=== PATIENT | female | born 1950 | race Caucasian/White ===

== ENCOUNTER 2017-02-19 19:15 | Inpatient (IN) | payer BC, OTHER ==
[~2017-02-19 19:15] MED LIST: DIPRIVAN VIAL ONE; EPHEDRINE SULFATE INJ ONE; NEOSTIGMINE INJ ONE; NORCURON INJ 10 MG VIAL ONE; QUELICIN (OR ANECTINE) ONE; ROBINUL ONE; SUPRANE IN ONE; VERSED ONE; XYLOCAINE 2 % (PLAIN) ONE; ZOFRAN INJ 4 MG VIAL ONE
--- NOTE | 2017-02-19 20:15 | DR.GENAD ---
HPI - PCP Primary Care Physician: Dion FLORES - Complaint/Symptoms Chief Complaint:: UPPER RIGHT ABDOMINAL PAIN COMES AND GOES SINCE SUNDAY. RIGHT UPPER QUADRANT IS TIGHT ALL THE TIME. PATIENT HAS ALSO BEEN VOMITING Self Treatment fo Chief Complaint: TOOK A ZOFRAN TAB ABOUT AN HOUR AGO - Source History Provided: Patient - Mode of Arrival Mode of Arrival: Ambulatory - Timing Onset of Chief Complaint: 02/15/17 PMH - PMH Past Medical History: Yes Past Medical History: Diabetes, Dyslipidemia, GERD, Hypertension, Kidney Stones Past Surgical History: Yes Surgical History: Hysterectomy Past Surgical History Comment: LUMPS REMOVED FROM BREAST - Family History History of Family Medical Conditions: Yes Family Medical History: Diabetes Mellitus, Cancer, [place], Coronary Artery Disease, Sudden Cardiac , Hypertension - Social History Does patient currently use any type of tobacco product: No Have you used tobacco products in the last 12 months: No Type of Tobacco Use: None Does any household member use tobacco: No Alcohol Use: None Do you use any recreational Drugs:: No Lives With: Spouse Lives Where: Home - infectious screening In the last 2 months have you had wt loss of >10#?: NO Have you had fever, night sweats or hemotysis?: No Have you traveled outside the country in the last 6 months?: No Isolation: Standard ROS - Review of Systems Eyes: No Symptoms Reported ENTM: No Symptoms Reported Respiratoy: No Symptoms Reported Cardiovascular: No Symptoms Reported Gastrointestinal/Abdominal: Abdominal Pain (RUQ) Neurological: No Symptoms Reported Musculoskeletal: No Symptoms Reported Integumentary: No Symptoms Reported Hematologic/Lymphatic: No Symptoms Reported Endocrine: No Symptoms Reported Psychiatric: No Symptoms Reported All Other Systems: Reviewed and Negative PE - Vital Signs Vitals: Temperature 97.9 F Pulse Rate 66 Respiratory Rate 20 Blood Pressure 172/72 O2 Sat by Pulse Oximetry 96 - General Limitations: No Limitations General Appearance: Alert, In No Apparent Distress - Head Head Exam: Normal Inspection, Atraumatic - Eyes Eye exam: Normal Appearance, PERRL, EOMI - ENT ENT Exam: Normal Exam External Ear Exam: Normal External Inspection TM/Canal Exam: Bilateral Normal Nose Exam: Normal Nose Exam Mouth Exam: Normal Inspection Throat Exam: Normal Inspection - Neck Neck Exam: Normal Inspection - Chest Chest Inspection: Normal Inspection - Respiratory Respiratory Exam: Normal Lung Sounds Bilat Respiratory Exam: Bilateral Clear to Auscultation - Cardiovascular Cardiovascular Exam: Regular Rate, Normal Rhythm - Abdominal Exam Abdominal Exam: Normal Inspection, Normal Bowel Sounds Abdominal Tenderness: negative: RUQ, RLQ, LUQ, LLQ, Epigastrium, Suprapubic, Diffuse, Mild, Moderate, Severe, Other - Extremities Extremities Exam: Normal Inspection, Full ROM - Back Back Exam: Normal Inspection, Full ROM - Neurologic Neurological Exam: Alert, Oriented X3, CN II-XII Intact - Psychiatric Psychiatric Exam: Normal Affect - Skin Skin Exam: Warm, Dry, Intact Course - Reevaluation 1st: Improved - Consultation Called: 10:15 (Dr Humphreys recommended admission for further evaluation) ROR - Labs Reviewed Result Diagrams: 02/19/17 20:44 02/19/17 20:44 Laboratory: WBC 12.3 X10^3/uL (3.6-10.0) H 02/19/17 20:44 RBC 4.63 X10^6/uL (3.5-5.4) 02/19/17 20:44 Hgb 13.7 g/dL (12.0-16.0) 02/19/17 20:44 Hct 39.3 % (36.0-47.0) 02/19/17 20:44 MCV 85.0 fL (80.0-100.0) 02/19/17 20:44 MCH 29.7 pg (27.0-34.0) 02/19/17 20:44 MCHC 34.9 g/dL (33.0-35.0) 02/19/17 20:44 RDW 13.2 % (11.6-16.5) 02/19/17 20:44 Plt Count 208 X10^3/uL (150.0-450.0) 02/19/17 20:44 MPV 7.4 fL (7.4-11.0) 02/19/17 20:44 Neut % 88.3 % (42.0-75.0) H 02/19/17 20:44 Lymph % 6.3 % (21.0-51.0) L 02/19/17 20:44 [place] % 4.2 % (0.0-13.0) 02/19/17 20:44 Eos % 0.6 % (0.9-2.9) L 02/19/17 20:44 Baso % 0.6 % (0.2-1.0) 02/19/17 20:44 Neut # 10.9 x10^3/uL (2.2-4.8) H 02/19/17 20:44 Lymph # 0.8 X10^3/uL (1.3-2.9) L 02/19/17 20:44 [place] # 0.5 x10^3/uL (0.3-0.8) 02/19/17 20:44 Eos # 0.1 x10^3/uL (0.0-0.2) 02/19/17 20:44 Baso # 0.1 X10^3/uL (0.0-0.1) 02/19/17 20:44 Absolute Nucleated RBC 0.0 /100WBC 02/19/17 20:44 Sodium 138 mmol/L (136-145) 02/19/17 20:44 Corrected Sodium 139 mmol/L (136-145) 02/19/17 20:44 Potassium 4.0 mmol/L (3.5-5.1) 02/19/17 20:44 Chloride 99 mmol/L (98-107) 02/19/17 20:44 Carbon Dioxide 26.6 mmol/L (21-32) 02/19/17 20:44 BUN 14 mg/dL (7-18) 02/19/17 20:44 Creatinine 0.83 mg/dL (0.55-1.02) 02/19/17 20:44 Est GFR (MDRD) Af Amer > 60 (>60) 02/19/17 20:44 Est GFR (MDRD) Non-Af > 60 (>60) 02/19/17 20:44 Glucose 158 mg/dL (65-99) H 02/19/17 20:44 Calcium 9.6 mg/dL (8.5-10.1) 02/19/17 20:44 Corrected Calcium TNP 02/19/17 20:44 Total Bilirubin 2.70 mg/dL (0.2-1.0) H 02/19/17 20:44 AST 165 Units/L (15-37) H 02/19/17 20:44 ALT 169 Units/L (12-78) H 02/19/17 20:44 Alkaline Phosphatase 132 Units/L (46-116) H 02/19/17 20:44 C-Reactive Protein 28.50 mg/L (0-3.0) H 02/19/17 20:44 Total Protein 7.8 g/dL (6.4-8.2) 02/19/17 20:44 Albumin 4.0 g/dL (3.4-5.0) 02/19/17 20:44 Globulin 3.8 g/dL (2.5-4.5) 02/19/17 20:44 Albumin/Globulin Ratio 1.1 Ratio (1.1-2.1) 02/19/17 20:44 Amylase 294 Units/L (25-115) H 02/19/17 20:44 Lipase 3545 Units/L (73-393) H 02/19/17 20:44 Specimen Type Clean catch urine 02/19/17 21:49 Urine Color Yellow (YELLOW) 02/19/17 21:49 Urine Appearance Slightly hazy (CLEAR) 02/19/17 21:49 Urine pH 6.0 (5.0 - 8.0) 02/19/17 21:49 Ur Specific Hana 1.020 (1.000-1.030) 02/19/17 21:49 Urine Protein Negative (NEGATIVE) 02/19/17 21:49 Urine Glucose (UA) Negative (NEGATIVE) 02/19/17 21:49 Urine Ketones Negative (NEGATIVE) 02/19/17 21:49 Urine Occult Blood 2+ (NEGATIVE) 02/19/17 21:49 Urine Nitrite Negative (NEGATIVE) 02/19/17 21:49 Urine Bilirubin Negative (NEGATIVE) 02/19/17 21:49 Urine Urobilinogen 3+ (NORMAL) 02/19/17 21:49 Ur Leukocyte Esterase 2+ (NEGATIVE) 02/19/17 21:49 Urine RBC 0-3 /HPF (NEGATIVE) 02/19/17 21:49 Urine WBC 6-8 /HPF (NEGATIVE) 02/19/17 21:49 Ur Squamous Epith Cells Rare /HPF (NEGATIVE) 02/19/17 21:49 Urine Bacteria 1+ /HPF (NEGATIVE) 02/19/17 21:49 Ur Culture Indicated? Yes/culture set up 02/19/17 21:49 - XRAY XRAY Interpreted by: Radiologist (US: The gallbladder demonstrated diffuse gallbladder wall thickening measuring approximately 7mm in thickness. No pericholecystic fluie or gallbladder wall submucosal edema identified. There is approximate 10 mm increased echogenicity within the gallbladder wall which does not appear to be dependent suspicious for gallbladder nodule or poly. There are at least 2 stones noted within the gallbladder neck which moved during the examination. Common bile duct measures 6mm. Visualized right kidney demonstrates no evidence of hydronephrosis. Limited evaluation the liver demonstrates no discrete focal hepatic lesion.) - Diagnosis Discharge Problem: Pancreatitis due to biliary obstruction Qualifiers: Chronicity: acute Acute pancreatitis complication: uninfected necrosis Qualified Code(s): K85.11 - Biliary acute pancreatitis with uninfected necrosis - Discharge Plan Condition: Stable - Follow ups/Referrals Follow ups/Referrals: MARÍA FLORES [Primary Care Provider] - 3 days - Instructions
[2017-02-19] MEDS ORDERED: NS 1000 ML 1,000 ML IV ONE (20:17)
[2017-02-19] MEDS ORDERED: ZOFRAN INJ 4 MG VIAL IVP ONE (20:17)
[2017-02-19 20:49] LABS: BASOPHILS # (AUTO) 0.1 X10^3/uL (0.0-0.1); BASOPHILS % (AUTO) 0.6 % (0.2-1.0); EOSINOPHILS # (AUTO) 0.1 x10^3/uL (0.0-0.2); EOSINOPHILS % (AUTO) 0.6 % (0.9-2.9); HEMATOCRIT 39.3 % (36.0-47.0); HEMOGLOBIN 13.7 g/dL (12.0-16.0); LYMPHOCYTES # (AUTO) 0.8 X10^3/uL (1.3-2.9); LYMPHOCYTES % (AUTO) 6.3 % (21.0-51.0); MEAN CORPUSCULAR HEMOGLOBIN 29.7 pg (27.0-34.0); MEAN CORPUSCULAR HGB CONC 34.9 g/dL (33.0-35.0); MEAN PLATELET VOLUME 7.4 fL (7.4-11.0); MONOCYTES # (AUTO) 0.5 x10^3/uL (0.3-0.8); MONOCYTES % (AUTO) 4.2 % (0.0-13.0); NEUTROPHILS # (AUTO) 10.9 x10^3/uL (2.2-4.8); NEUTROPHILS % (AUTO) 88.3 % (42.0-75.0); PLATELET COUNT 208 X10^3/uL (150.0-450.0); RED BLOOD COUNT 4.63 X10^6/uL (3.5-5.4); RED CELL DISTRIBUTION WIDTH 13.2 % (11.6-16.5); WHITE BLOOD COUNT 12.3 X10^3/uL (3.6-10.0)
[2017-02-19 21:01] LABS: AMYLASE 294 Units/L (25-115)
[2017-02-19 21:10] LABS: LIPASE 3545 Units/L (73-393)
[2017-02-19 21:11] LABS: ALANINE AMINOTRANSFERASE 169 Units/L (12-78); ALKALINE PHOSPHATASE 132 Units/L (46-116); ASPARTATE AMINO TRANSFERASE 165 Units/L (15-37); BLOOD UREA NITROGEN 14 mg/dL (7-18); CALCIUM 9.6 mg/dL (8.5-10.1); CARBON DIOXIDE 26.6 mmol/L (21-32); CHLORIDE 99 mmol/L (98-107); COR NA(FOR HYPERGLY) 139 mmol/L (136-145); CREATININE 0.83 mg/dL (0.55-1.02); SODIUM 138 mmol/L (136-145); TOTAL PROTEIN 7.8 g/dL (6.4-8.2); eGFR BLACK RACES > 60 (>60); eGFR NON BLACK RACES > 60 (>60)
--- NOTE | 2017-02-19 21:48 | US ---
Gallbladder sonogram Indication: Right upper quadrant pain with vomiting. Technique: Real-time grayscale or Doppler imaging of the right upper quadrant was performed. Findings: The gallbladder demonstrates diffuse gallbladder wall thickening measuring approximately 7 mm in thickness. No pericholecystic fluid or gallbladder wall submucosal edema identified. There is a pproximate 10 mm increased echogenicity within the gallbladder wall which does not appear to be depen dent suspicious for gallbladder nodule or polyp. There are at least 2 stones noted within the gallbla dder neck which moved during the examination. Common bile duct measures 6 mm. Visualized right kidney demonstrates no evidence of hydronephrosis. Limited evaluation the liver demonstrates no discrete fo porsche hepatic lesion. Impression: Abnormal appearance of the gallbladder with diffuse gallbladder wall thickening and quest ionable area of focal nondependent gallbladder wall thickening/echogenicity which is suspicious for e ither focal gallbladder wall thickening in the setting of cholesterolosis or gallbladder polyp. Sever al dependent gallstones are noted within the gallbladder neck which are mobile during the examination . No sonographic evidence of acute cholecystitis. Given the gallbladder wall thickening and question nodule/polyp consider follow-up gallbladder sonogram in 6 months to exclude gallbladder polyp/mass ca n be obtained as clinically warranted. Reported By:
[2017-02-19 22:04] LABS: BILIRUBIN,URINE NEGATIVE (NEGATIVE); BLOOD/HEMOGLOBIN,URINE 2+ (NEGATIVE); GLUCOSE, URINE NEGATIVE (NEGATIVE); KETONES,URINE NEGATIVE (NEGATIVE); LEUKOCYTE ESTERASE ,URINE 2+ (NEGATIVE); NITRITES,URINE NEGATIVE (NEGATIVE); PROTEIN,URINE NEGATIVE (NEGATIVE); UROBILINOGEN,URINE 3+ (NORMAL)
[2017-02-19 22:12] LABS: APPEARANCE,URINE SLIGHTLY HAZY (CLEAR); BACTERIA,URINE 1+ /HPF (NEGATIVE); COLOR,URINE YELLOW (YELLOW); RBC,URINE 0-3 /HPF (NEGATIVE); SQUAMOUS EPITHELIAL CELL,UR RARE /HPF (NEGATIVE)
[2017-02-19] MEDS ORDERED: DEMEROL INJ IM PRN (22:32)
[2017-02-19] MEDS ORDERED: ZOFRAN INJ 4 MG VIAL IVP PRN (22:33)
[2017-02-19] MEDS ORDERED: MORPHINE SULFATE INJ 4 MG IVP ONE (22:37)
[2017-02-19] MEDS ORDERED: MORPHINE SULFATE INJ 4 MG ONE (22:39)
[2017-02-19] MEDS: NS 1000 ML 1,000 ML IV SCH (23:30)
[2017-02-19 23:40] VITALS: BMI 29.0
[2017-02-20 05:29] LABS: BASOPHILS % (AUTO) 0.2 % (0.2-1.0); HEMATOCRIT 35.5 % (36.0-47.0); HEMOGLOBIN 12.3 g/dL (12.0-16.0); LYMPHOCYTES # (AUTO) 0.3 X10^3/uL (1.3-2.9); LYMPHOCYTES % (AUTO) 2.9 % (21.0-51.0); MEAN CORPUSCULAR HEMOGLOBIN 29.7 pg (27.0-34.0); MEAN CORPUSCULAR HGB CONC 34.6 g/dL (33.0-35.0); MEAN CORPUSCULAR VOLUME 85.8 fL (80.0-100.0); MEAN PLATELET VOLUME 8.4 fL (7.4-11.0); MONOCYTES # (AUTO) 0.6 x10^3/uL (0.3-0.8); MONOCYTES % (AUTO) 5.1 % (0.0-13.0); NEUTROPHILS # (AUTO) 11.1 x10^3/uL (2.2-4.8); NEUTROPHILS % (AUTO) 91.8 % (42.0-75.0); PLATELET COUNT 170 X10^3/uL (150.0-450.0); RED BLOOD COUNT 4.13 X10^6/uL (3.5-5.4); RED CELL DISTRIBUTION WIDTH 13.2 % (11.6-16.5); WHITE BLOOD COUNT 12.1 X10^3/uL (3.6-10.0)
[2017-02-20 05:32] LABS: ALANINE AMINOTRANSFERASE 365 Units/L (12-78); ALBUMIN 3.1 g/dL (3.4-5.0); ALKALINE PHOSPHATASE 141 Units/L (46-116); ASPARTATE AMINO TRANSFERASE 413 Units/L (15-37); BLOOD UREA NITROGEN 13 mg/dL (7-18); CALCIUM 8.5 mg/dL (8.5-10.1); CARBON DIOXIDE 22.8 mmol/L (21-32); CHLORIDE 101 mmol/L (98-107); COR CA(FOR HYPOALB) 9.2 mg/dL (8.5-10.1); COR NA(FOR HYPERGLY) 139 mmol/L (136-145); CREATININE 0.76 mg/dL (0.55-1.02); SODIUM 137 mmol/L (136-145); TOTAL PROTEIN 6.7 g/dL (6.4-8.2); eGFR BLACK RACES > 60 (>60); eGFR NON BLACK RACES > 60 (>60)
[2017-02-20 06:04] LABS: BAND NEUTROPHILS % 19 % (0-10); PLATELET MORPHOLOGY COMMENT NORMAL (NORMAL)
[2017-02-20] MEDS ORDERED: K-DUR TAB 20 MEQ PO PRN (06:19)
[2017-02-20] MEDS ORDERED: POTASSIUM CHLORIDE LIQ 20 MEQ UDC PO PRN (06:19)
[2017-02-20] MEDS ORDERED: K-LYTE EFFERVESCENT PO PRN (06:19)
[2017-02-20] MEDS ORDERED: K-RIDER 10 MEQ/NS 100 ML 10 MEQ/100 ML BAG IV PRN (06:19)
[2017-02-20 06:32] LABS: AMYLASE 94 Units/L (25-115); LIPASE 317 Units/L (73-393)
[2017-02-20] MEDS: NS 1000 ML 1,000 ML IV SCH ×2 (07:15→15:20)
[2017-02-20] MEDS ORDERED: NORCO 7.5/325 MG TAB PO PRN (09:59)
[2017-02-20] MEDS: COLACE CAP 100 MG PO SCH ×2 (10:23→20:00)
[2017-02-20] MEDS: LEVAQUIN PREMIX IV 500 MG 500 MG/100 ML BAG IV SCH (10:23)
[2017-02-20] MEDS ORDERED: RESTORIL CAP 30 MG PO PRN (11:14)
[2017-02-20] MEDS ORDERED: VALIUM INJ IVP ONE (12:00)
[2017-02-20] MEDS ORDERED: GLUCOPHAGE ONE ×2 (13:14→17:13)
[2017-02-20] MEDS: HYDROCHLOROTHIAZIDE 12.5 MG CAP PO SCH (13:36)
[2017-02-20] MEDS: MAGNESIUM SULFATE 1 GM/100 mL PREMIX 1 GM/100 ML BAG IV SCH ×2 (13:36→15:01)
[2017-02-20] MEDS: GLUCOPHAGE PO SCH ×2 (13:37→17:35)
[2017-02-20] MEDS: DIOVAN TAB 160 MG PO SCH (13:37)
[2017-02-20] MEDS: PROTONIX TAB 40 MG PO SCH (13:37)
[2017-02-20] MEDS: TYLENOL 325 MG TAB PO PRN (15:18)
[2017-02-20] MEDS: MILK OF MAGNESIA PO SCH (20:00)
[2017-02-21] MEDS: NS 1000 ML 1,000 ML IV SCH ×3 (02:28→18:02)
[2017-02-21 05:25] LABS: BASOPHILS % (AUTO) 0.3 % (0.2-1.0); EOSINOPHILS # (AUTO) 0.1 x10^3/uL (0.0-0.2); EOSINOPHILS % (AUTO) 1.2 % (0.9-2.9); HEMATOCRIT 32.4 % (36.0-47.0); HEMOGLOBIN 11.4 g/dL (12.0-16.0); LYMPHOCYTES # (AUTO) 0.4 X10^3/uL (1.3-2.9); LYMPHOCYTES % (AUTO) 6.7 % (21.0-51.0); MEAN CORPUSCULAR HEMOGLOBIN 29.8 pg (27.0-34.0); MEAN CORPUSCULAR HGB CONC 35.1 g/dL (33.0-35.0); MEAN PLATELET VOLUME 8.2 fL (7.4-11.0); MONOCYTES # (AUTO) 0.4 x10^3/uL (0.3-0.8); MONOCYTES % (AUTO) 6.7 % (0.0-13.0); NEUTROPHILS % (AUTO) 85.1 % (42.0-75.0); PLATELET COUNT 144 X10^3/uL (150.0-450.0); RED BLOOD COUNT 3.81 X10^6/uL (3.5-5.4); RED CELL DISTRIBUTION WIDTH 13.2 % (11.6-16.5); WHITE BLOOD COUNT 5.9 X10^3/uL (3.6-10.0)
[2017-02-21 05:27] LABS: ALANINE AMINOTRANSFERASE 284 Units/L (12-78); ALBUMIN 2.8 g/dL (3.4-5.0); ALKALINE PHOSPHATASE 136 Units/L (46-116); ASPARTATE AMINO TRANSFERASE 150 Units/L (15-37); BLOOD UREA NITROGEN 9 mg/dL (7-18); CALCIUM 8.2 mg/dL (8.5-10.1); CARBON DIOXIDE 22.8 mmol/L (21-32); CHLORIDE 104 mmol/L (98-107); COR CA(FOR HYPOALB) 9.2 mg/dL (8.5-10.1); COR NA(FOR HYPERGLY) 138 mmol/L (136-145); CREATININE 0.68 mg/dL (0.55-1.02); LIPASE 85 Units/L (73-393); MAGNESIUM 2.2 mg/dL (1.7-2.9); SODIUM 137 mmol/L (136-145); TOTAL PROTEIN 6.3 g/dL (6.4-8.2); eGFR BLACK RACES > 60 (>60); eGFR NON BLACK RACES > 60 (>60)
[2017-02-21] MEDS ORDERED: GLUCOPHAGE ONE (08:15)
[2017-02-21] MEDS: LEVAQUIN PREMIX IV 500 MG 500 MG/100 ML BAG IV SCH (09:28)
[2017-02-21] MEDS: TYLENOL 325 MG TAB PO PRN (09:28)
[2017-02-21] MEDS ORDERED: LR 1000 ML IV 1,000 ML IV ONE (11:42)
[2017-02-21] MEDS ORDERED: NS 50 ML IV + SPIKE MINIBAG* 50 ML IV ONE ×2 (11:42→11:43)
[2017-02-21] MEDS ORDERED: ANCEF VIAL 1 GM ONE (11:43)
[2017-02-21] MEDS ORDERED: MARCAINE 0.25% INJ ONE (12:42)
[2017-02-21] MEDS ORDERED: FENTANYL INJ 250 mcg ONE (12:50)
[2017-02-21] MEDS ORDERED: XYLOCAINE 1% and EPINEPHRINE 1:100,000 IJ ONE ×2 (13:19)
[2017-02-21] MEDS ORDERED: NS IRRIGATION 3000 ML 3,000 ML IR ONE (13:40)
[2017-02-21] MEDS ORDERED: DILAUDID INJ ONE (13:53)
[2017-02-21] MEDS: DILAUDID INJ IVP PRN ×2 (14:28→14:42)
[2017-02-21] MEDS ORDERED: BENADRYL INJ 50 MG VIAL IVP PRN (14:30)
[2017-02-21] MEDS ORDERED: ZOFRAN INJ 4 MG VIAL IVP PRN (14:30)
[2017-02-21] MEDS ORDERED: PHENERGAN INJ 25 MG IVP PRN (14:30)
[2017-02-21] MEDS ORDERED: REGLAN INJ 10 MG VIAL IVP PRN (14:30)
[2017-02-21] MEDS ORDERED: PERCOCET TAB 5/325 MG PO PRN (14:41)
--- NOTE | 2017-02-21 14:41 | OR.GENERIC ---
Post-Op Note Generic - Post-Op Note Operative Report: Operative Report Date of Operation: February 21, 2017 Pre-Operative Diagnosis: Biliary pancreatitis. Post-Operative Diagnosis: 1. Acute cholecystitis. 2. Biliary pancreatitis. Procedure: Laparoscopic cholecystectomy. Surgeon: Ventura Pierre MD. Athletic Instructor: Kelsi Lundy CRNA. Specimen: Gallbladder. Estimated blood loss: Minimal. Complications: None. Summary: The patient is a 66 year old female who presented with biliary pancreatitis. A pre-operative MRCP failed to show any retained stones in the common bile duct. The patient was offered cholecystectomy. The risk and benefits of the procedure including difficulty with anesthesia, bleeding, infection, conversion to open procedure, bile leak, hernia formation, DVT, as well as PE were discussed with the patient. The patient understood these risks and requested the procedure. On February 21, 2017, the patient was brought to the operative theatre. A time out was performed verifying the patient and procedure. After satisfactory induction of general endotracheal anesthesia, the abdomen was prepped with Chloraprep and draped in the usual sterile fashion. The skin and subcutaneous tissue inferior at the umbilicus was anesthetized using local anesthetic. The skin was incised sharply. A 12 mm trocar was placed though the incision and into the peritoneal cavity using the Jose technique. Carbon dioxide was infiltrated through this trocar to obtain a pneumoperitoneum of 15 mm Hg. A camera was placed through this trocar and swept in all directions. No injury was seen from entering the peritoneal cavity. A site was selected in the subxiphoid location for our 2nd trocar. The skin and fascia was anesthetized using local anesthetic. The skin was incised sharply. A 5 mm trocar was placed into the peritoneal cavity under direct visualization. In a similar manner, two additional 5 mm trocars were placed. The first was placed in the mid-clavicular line approximately 2 fingerbreadths inferior to the left costal margin and a second in the anterior axillary line approximately 2 fingerbreadths inferior to the left costal margin. The patient was placed in reverse Trendelenburg and rotated to the patients left. The gallbladder was grasped at the fundus and elevated cephalad and slightly lateral. Omental attachments were taken down using blunt dissection and electrocautery. The peritoneum on the medial and lateral aspects of the infundibulum of the gallbladder was scored using hook electrocautery. Using blunt dissection, the cystic artery and duct were isolated. The critical view of safety was obtained. Both of these structures were divided between endoclips. Of note, the cystic duct tore between the clips with only moderate pressure. The gallbladder was dissected free using hook electrocautery. The gallbladder was placed in an endobag and removed through the umbilical trocar site without difficulty. The trocar and camera were placed back inside the abdomen. Our clips were noted in good position. Bleeding of the gallbladder fossa was controlled using electrocautery. At this point, the 5 mm trocars were removed under direct visualization. No bleeding was seen. The umbilical trocar was then removed and pneumoperitoneum released. The fascia at the umbilicus was closed using a 0-Vicryl placed in a [id number] configuration. The skin edges at all incisions were re-approximated using inverted, interrupted 4-0 Monocryl sutures. Benzoin and Steri-strips were placed. Sterile dressings were placed. The patient was awakened and taken to the recovery room in stable condition. There were no complications. All counts were correct.
--- NOTE | 2017-02-21 15:11 | DR.CONSULT ---
Consult - Consultation for Day of: Date: 02/20/17 - Chief Complaint Chief Complaint: Biliary pancreatitis - Allergies Allergies/Adverse Reactions: Allergies Allergy/AdvReac Type Severity Reaction Status Date / Time No Known Drug Allergies Allergy Verified 02/19/17 21:17 - History of Present Illness History of Present Illness: The patient is a 66 yo F who presented to the [facility] ER with persistent nausea. Work-up revealed pancreatitis. (-) h/o ETOH. Labs demonstrated biliary obstruction. An ultrasound showed cholelithiasis with likely cholecystitis. The patient was admitted to the hospital. A MRCP was performed that demonstrated cholelithiasis without cholecystitis. No gallstones were seen in the common bile duct. Surgery was consulted for cholecystectomy. - Past Medical History Past Medical History: Diabetes, Dyslipidemia, GERD, Hypertension, Kidney Stones - Past Surgical History Surgical History: Hysterectomy, Other - Family History Family Medical History: Diabetes Mellitus, Cancer, [place], Coronary Artery Disease, Sudden Cardiac , Hypertension - Social History Does patient currently use any type of tobacco product: No Have you used tobacco products in the last 12 months: No Type of Tobacco Use: None Does any household member use tobacco: No Alcohol Use: None Drug Use: None - Medications Home Medications: Metformin HCl [GLUCOPHAGE 500 MG *] 1 tab PO BID 02/20/17 [History Confirmed 02/27] Pantoprazole Sodium 40 mg [PROTONIX 40 MG *] 1 tab PO DAILY 02/20/17 [History Confirmed 02/20/17] Rosuvastatin Calcium 1 tab PO HS 02/20/17 [History Confirmed 02/20/17] Temazepam 1 cap PO HS 02/20/17 [History Confirmed 02/20/17] Valsartan/Hydrochlorothiazide [Valsartan/HCTZ 160/12.5 mg] 1 tab PO DAILY [History Confirmed 02/20/17] - Review of Systems Constitutional: No Symptoms Reported Eyes: No Symptoms Reported ENT: No Symptoms Reported Respiratory: No Symptoms Reported Cardiovascular: No Symptoms Reported Gastrointestinal: Nausea, Vomiting, Abdominal Pain Genitourinary: No Symptoms Reported Musculoskeletal: No Symptoms Reported Skin: No Symptoms Reported Neurological: No Symptoms Reported - Physical Exam Vital Signs: Temperature 98.7 F Pulse Rate [Left Brachial] 101 Pulse Rate [Right Brachial] 108 Pulse Rate 112 Respiratory Rate 20 Blood Pressure [Left Arm] 175/77 Blood Pressure [Right Arm] 124/60 Blood Pressure 175/78 O2 Sat by Pulse Oximetry 93 Oriented: Time Eyes: Normal Ear: Normal Nose: Normal Throat: Normal Respiratory: Clear Throughout Cardiovascular: Normal Auscultation: Bowel Sounds: Normal Palpation: Normal Tenderness: RUQ ((+) Moise's sign.) Skin: Normal, Other (Numerous skin tags.) Musculoskeletal: Normal Psychiatric: Normal Mood Description: Calm - Plan Plan: 66 yo F with biliary pancreatitis. Improving pancreatitis. Labs slowly correcting. MRCP does not demonstrate retained stones. On levaquin. Continue current management. Needs lap virginie. Risk / benefits d/w patient. All questions answered.
[2017-02-21] MEDS: MILK OF MAGNESIA PO SCH ×2 (15:30→21:05)
[2017-02-21] MEDS: DIOVAN TAB 160 MG PO SCH (16:00)
[2017-02-21] MEDS: HYDROCHLOROTHIAZIDE 12.5 MG CAP PO SCH (16:00)
[2017-02-21] MEDS: GLUCOPHAGE PO SCH ×2 (16:00→16:28)
[2017-02-21] MEDS: PROTONIX TAB 40 MG PO SCH (16:00)
[2017-02-21] MEDS: COLACE CAP 100 MG PO SCH (21:05)
[2017-02-21] MEDS: LOVENOX INJ 30 MG SYR SC SCH (21:05)
[2017-02-22 05:05] VITALS: BP 162/77
[2017-02-22] MEDS: NS 1000 ML 1,000 ML IV SCH (05:44)
[2017-02-22 05:50] LABS: ALANINE AMINOTRANSFERASE 264 Units/L (12-78); ALBUMIN 2.7 g/dL (3.4-5.0); ALKALINE PHOSPHATASE 177 Units/L (46-116); ASPARTATE AMINO TRANSFERASE 169 Units/L (15-37); BLOOD UREA NITROGEN 9 mg/dL (7-18); CALCIUM 8.4 mg/dL (8.5-10.1); CARBON DIOXIDE 23.3 mmol/L (21-32); CHLORIDE 102 mmol/L (98-107); COR CA(FOR HYPOALB) 9.4 mg/dL (8.5-10.1); COR NA(FOR HYPERGLY) 136 mmol/L (136-145); CREATININE 0.63 mg/dL (0.55-1.02); LIPASE 90 Units/L (73-393); SODIUM 135 mmol/L (136-145); TOTAL PROTEIN 6.5 g/dL (6.4-8.2); eGFR BLACK RACES > 60 (>60); eGFR NON BLACK RACES > 60 (>60)
[2017-02-22 06:13] LABS: BASOPHILS % (AUTO) 0.2 % (0.2-1.0); EOSINOPHILS % (AUTO) 0.3 % (0.9-2.9); HEMATOCRIT 33.6 % (36.0-47.0); HEMOGLOBIN 11.9 g/dL (12.0-16.0); LYMPHOCYTES # (AUTO) 0.7 X10^3/uL (1.3-2.9); LYMPHOCYTES % (AUTO) 10.5 % (21.0-51.0); MEAN CORPUSCULAR HGB CONC 35.3 g/dL (33.0-35.0); MEAN PLATELET VOLUME 8.1 fL (7.4-11.0); MONOCYTES # (AUTO) 0.5 x10^3/uL (0.3-0.8); MONOCYTES % (AUTO) 7.9 % (0.0-13.0); NEUTROPHILS # (AUTO) 5.3 x10^3/uL (2.2-4.8); NEUTROPHILS % (AUTO) 81.1 % (42.0-75.0); PLATELET COUNT 158 X10^3/uL (150.0-450.0); RED BLOOD COUNT 3.96 X10^6/uL (3.5-5.4); RED CELL DISTRIBUTION WIDTH 13.3 % (11.6-16.5); WHITE BLOOD COUNT 6.5 X10^3/uL (3.6-10.0)
[2017-02-22] MEDS ORDERED: GLUCOPHAGE ONE (08:57)
[2017-02-22] MEDS ORDERED: SNACK - Diabetic Appropriate PO SCH (09:30)
[2017-02-22] MEDS: MILK OF MAGNESIA PO SCH (10:07)
[2017-02-22] MEDS: LOVENOX INJ 30 MG SYR SC SCH (10:07)
[2017-02-22] MEDS: GLUCOPHAGE PO SCH (10:09)
[2017-02-22] MEDS: LEVAQUIN PREMIX IV 500 MG 500 MG/100 ML BAG IV SCH (10:09)
[2017-02-22] MEDS: PROTONIX TAB 40 MG PO SCH (10:09)
[2017-02-22] MEDS: DIOVAN TAB 160 MG PO SCH (10:09)
[2017-02-22] MEDS: HYDROCHLOROTHIAZIDE 12.5 MG CAP PO SCH (10:09)
== END 2017-02-22 11:55 | disposition home or self-care (01) | DRG 417 ==
LOC: ER 19:43 → MED/SURG 22:29
PROVIDERS: ADMIT Obstetrics & Gynecology Obstetrics; ATTEND Obstetrics & Gynecology Obstetrics
PROC: 0FT44ZZ Resection of Gallbladder, Percutaneous Endoscopic Approach (ICD-10-PCS; principal; 2017-02-21 10:45)
DX: K81.0 Acute cholecystitis (principal); K85.10 Biliary acute pancreatitis without necrosis or infection; E78.00 Pure hypercholesterolemia, unspecified; I10 Essential (primary) hypertension; E11.9 Type 2 diabetes mellitus without complications; E83.42 Hypomagnesemia; E87.6 Hypokalemia
CPT/HCPCS: 36415; 74181; 76705; 80053; 81001; 82150; 83690; 83735; 84132; 85025; 86140; 87086; 93005; 93010; 94760; 96365; 96374; 96375; 99284; A4216; A4222; S0020; J0330; J0690; J1170; J1650; J1956; J2001; J2175; J2250; J2270; J2405; J2710; J3010; J3360; J3490; J7120